=== PATIENT | female | born 1940 | race Caucasian/White ===

== ENCOUNTER 2023-07-28 21:23 | Emergency (ER) | payer MEDICARE ==
[~2023-07-28] VITALS: Ht 167.6 cm; Wt 55.5 kg
[2023-07-28 22:02] VITALS: TEMP 98
[2023-07-28] MEDS ORDERED: naproxen 500mg tablet PO ONE (22:45)
[2023-07-28] MEDS ORDERED: acetaminophen 325mg tablet PO ONE (22:45)
[2023-07-28 23:31] VITALS: BP 182/90; PULSE 91; RESP 18; O2SAT 98
== END 2023-07-28 23:33 | disposition home or self-care (01) ==
LOC: ER 21:24
DX: S43.005A Unspecified dislocation of left shoulder joint, initial encounter (principal); E78.00 Pure hypercholesterolemia, unspecified; I10 Essential (primary) hypertension; J44.9 Chronic obstructive pulmonary disease, unspecified; X58.XXXA Exposure to other specified factors, initial encounter; Y93.89 Activity, other specified; Y92.89 Other specified places as the place of occurrence of the external cause; Y99.8 Other external cause status
CPT/HCPCS: 23650; 73030; 99284